=== PATIENT | male | born 1990 | race Two or more races ===

== ENCOUNTER 2024-03-19 14:53 | Emergency (ER) | payer BC ==
[~2024-03-19] VITALS: Ht 185.4 cm; Wt 114.3 kg
[2024-03-19 14:56] VITALS: BP_SYST 130; PULSE 117; RESP 18; TEMP 97; O2SAT 97
[2024-03-19] MEDS: IBUPROFEN 800 MG TABLET PO ONE (15:40)
[2024-03-19] MEDS: HYDROcodone/ACETAMIN 10-325 MG TAB PO ONE (15:41)
[2024-03-19 16:30] VITALS: BP_SYST 127; PULSE 99; RESP 18; TEMP 97; O2SAT 97
[2024-03-19] MEDS ORDERED: HYDR-3921 PO (17:15)
[2024-03-19] MEDS ORDERED: IBUP-1971 PO (17:15)
== END 2024-03-19 16:29 | disposition home or self-care (01) ==
LOC: SED 14:53
DX: S82.62XA Displaced fracture of lateral malleolus of left fibula, initial encounter for closed fracture (principal); Z79.899 Other long term (current) drug therapy; W22.8XXA Striking against or struck by other objects, initial encounter; Y93.89 Activity, other specified; Y92.89 Other specified places as the place of occurrence of the external cause; Y99.8 Other external cause status
CPT/HCPCS: 99283